=== PATIENT | female | born 1970 | race Caucasian/White ===

== ENCOUNTER → 2020-09-03 | Outpatient (CLI) | payer BC ==
[~2020-09-03] MED LIST: ALBU90AE INH; BUDE0.5A NEB; BUDE10.2 INH; BUDE10.22 INH; CROM26SP5 NS; DIPH25CA61 PO; FEXO1TAB29 PO; LACT1CAP20 PO; MONT10TA6 PO; MULT-717 PO; SODI14.12 NS; TIOT4MIS5 INH
== END | disposition home or self-care (01) ==
LOC: STAR 10:44
PROVIDERS: ATTEND Otolaryngology
DX: Z20.828 Contact with and (suspected) exposure to other viral communicable diseases (principal); J32.4 Chronic pansinusitis
CPT/HCPCS: 87635

== ENCOUNTER 2020-09-09 05:29 | Day surgery (SDC) | payer BC ==
[~2020-09-09] VITALS: Ht 157.5 cm; Wt 55.0 kg
[2020-09-09] MEDS ORDERED: FENTANYL PF 250 MCG/5ML ONE ×2 (06:36→09:07)
[2020-09-09] MEDS ORDERED: MIDAZOLAM 1 MG/ML, 2ML ONE (06:36)
[2020-09-09] MEDS ORDERED: NEOSTIGMINE 1 MG/ML, 10ML ONE (06:40)
[2020-09-09] MEDS ORDERED: DEXAMETHASONE 4 MG/ML, 1ML ONE (06:40)
[2020-09-09] MEDS ORDERED: CEFAZOLIN 1,000 MG ONE (06:40)
[2020-09-09] MEDS ORDERED: PROPOFOL 10 MG/ML, 20ML ONE (06:40)
[2020-09-09] MEDS ORDERED: GLYCOPYRROLATE 0.2MG/1ML, 5ML ONE (06:40)
[2020-09-09] MEDS ORDERED: ROCURONIUM 10MG/ML,5ML ONE (06:40)
[2020-09-09] MEDS ORDERED: ONDANSETRON 2MG/ML, 2ML ONE (06:40)
[2020-09-09 06:55] VITALS: BP 104/79
[2020-09-09] MEDS ORDERED: SCOPOLAMINE 1MG PATCH TD ONE ×2 (06:55)
[2020-09-09] MEDS ORDERED: CHLORHEXIDINE 15 ML UDC ONE (06:59)
[2020-09-09] MEDS ORDERED: CHLORHEXIDINE 15 ML UDC MM ONE (07:00)
[2020-09-09] MEDS ORDERED: LACTATED RINGERS 1,000 ML IV SCH (07:00)
[2020-09-09] MEDS ORDERED: ALBUTEROL HFA 90 MCG/SPRAY ONE (07:07)
[2020-09-09] MEDS ORDERED: EPINEPHRINE TOPICAL SOLN 1 MG/ML, 30ML ONE (07:09)
[2020-09-09 07:10] LABS: HCG UR SG 1.023 (1.003-1.030)
[2020-09-09] MEDS ORDERED: FLUORESCEIN SODIUM 500 MG/5 ML ONE (07:10)
[2020-09-09] MEDS ORDERED: LIDOCAINE/PF 1%, 30ML ONE (07:10)
[2020-09-09] MEDS ORDERED: BACITRACIN 50,000 UNIT ONE (07:10)
[2020-09-09] MEDS ORDERED: OXYMETAZOLINE NASAL SPRAY 0.05%,30ML ONE (07:10)
[2020-09-09] MEDS ORDERED: EPINEPHRINE 1 MG/ML, 1ML ONE (07:10)
[2020-09-09] MEDS ORDERED: BACITRACIN OINT 500U/GM, 15 GM ONE (07:10)
[2020-09-09] MEDS ORDERED: MEPERIDINE/PF 25MG/0.5ML IVPush PRN (07:30)
[2020-09-09] MEDS ORDERED: HYDROmorphone 1 MG/ML, 1ML INJ IVPush PRN (07:30)
[2020-09-09] MEDS ORDERED: morphine SULFATE 10 MG/ML, 1ML IVPush PRN (07:30)
[2020-09-09] MEDS ORDERED: PROMETHAZINE 25 MG/ML, 1ML IVPush PRN (07:30)
[2020-09-09] MEDS ORDERED: ACETAMINOPHEN 325 MG TABLET PO PRN (07:30)
[2020-09-09] MEDS ORDERED: HALOPERIDOL 5 MG/ML IV PRN (07:30)
[2020-09-09] MEDS ORDERED: FENTANYL PF 100 MCG/2ML IV PRN (07:30)
[2020-09-09] MEDS ORDERED: LABETALOL 5MG/ML, 20ML IV PRN (07:30)
[2020-09-09] MEDS ORDERED: hydrALAzine 20 MG/ML, 1ML IV PRN (07:30)
[2020-09-09] MEDS ORDERED: OXYcodone 5 MG/5 ML ORAL.SOL UDC PO PRN (07:30)
[2020-09-09] MEDS ORDERED: EPINEPHRINE TOPICAL SOLN 1 MG/ML, 30ML TP ONE (08:07)
[2020-09-09] MEDS ORDERED: FLUORESCEIN SODIUM 500 MG/5 ML IV ONE (08:07)
[2020-09-09] MEDS ORDERED: LIDOCAINE 1%-EPI 1:100K, 30ML INFIL ONE (08:07)
[2020-09-09] MEDS ORDERED: BACITRACIN OINT 500U/GM, 15 GM TP ONE (08:29)
[2020-09-09] MEDS ORDERED: ACETAMINOPHEN 650 MG/20.3 ML UDC ONE (10:33)
== END 2020-09-09 12:15 | disposition home or self-care (01) ==
LOC: OR 05:29 → OUT 12:15
PROVIDERS: ATTEND Otolaryngology
DX: J01.81 Other acute recurrent sinusitis (principal); J33.8 Other polyp of sinus; J45.909 Unspecified asthma, uncomplicated; Z88.9 Allergy status to unspecified drugs, medicaments and biological substances; Z91.018 Allergy to other foods; Z88.0 Allergy status to penicillin; Z88.1 Allergy status to other antibiotic agents; Z88.2 Allergy status to sulfonamides; Z79.899 Other long term (current) drug therapy; Z90.49 Acquired absence of other specified parts of digestive tract; Z98.890 Other specified postprocedural states; Z72.89 Other problems related to lifestyle
CPT/HCPCS: 30140; 31259; 31267; 31276; 81025; 88304; 88311; J0171; J0690; J1100; J2250; J2405; J2704; J2710; J3010; J7120

== ENCOUNTER 2020-09-16 07:59 | Day surgery (SDC) | payer BC ==
[~2020-09-16] VITALS: Ht 157.5 cm; Wt 56.2 kg
[2020-09-16 08:28] VITALS: BP 122/89
[2020-09-16] MEDS ORDERED: CHLORHEXIDINE 15 ML UDC ONE (08:32)
[2020-09-16] MEDS ORDERED: OXYMETAZOLINE NASAL SPRAY 0.05%,30ML ONE (08:39)
[2020-09-16] MEDS ORDERED: CHLORHEXIDINE 15 ML UDC MM ONE (09:00)
== END 2020-09-16 09:20 | disposition home or self-care (01) ==
LOC: OUT 07:59
PROVIDERS: ATTEND Otolaryngology
DX: J32.4 Chronic pansinusitis (principal); J34.89 Other specified disorders of nose and nasal sinuses; Z20.828 Contact with and (suspected) exposure to other viral communicable diseases
CPT/HCPCS: 87635